=== PATIENT | female | born 1960 | race Caucasian/White ===

== ENCOUNTER → 2016-08-19 | Outpatient (CLI) | payer BC | LOC: MAMO 09:43 | DX: Z12.31 Encounter for screening mammogram for malignant neoplasm of breast (principal); R92.2 Inconclusive mammogram | CPT/HCPCS: G0202 ==

== ENCOUNTER → 2016-08-28 | Outpatient (CLI) | payer BC | LOC: MAMO 08-27 14:00 → US 08-27 14:30 → MAMO 13:54 | DX: N64.89 Other specified disorders of breast (principal) | CPT/HCPCS: G0206 ==

== ENCOUNTER → 2020-10-02 | Outpatient (CLI) | payer BC | LOC: KOH-I 16:07 | DX: M25.551 Pain in right hip (principal) | CPT/HCPCS: 73502 ==